=== PATIENT | female | born 1955 | race Caucasian/White ===

== ENCOUNTER → 2022-04-12 09:51 | Outpatient (CLI) | payer MEDICARE, BC, SELFPAY ==
--- NOTE | 2022-04-12 09:56 | MM_ITS ---
PROCEDURE INFORMATION: Exam: MG Bilateral Screening 3D Mammography Exam date and time: 04/12/2022 9:54 AM Age: 66 years old Clinical indication: Screening mammogram TECHNIQUE: Imaging protocol: Bilateral Screening tomosynthesis and 2D mammography including computer-aided detection (CAD) when performed. COMPARISON: 1. MG MAMMO SCREENING DIGITAL TOMOSYNTHESIS BILATERAL W CAD 09/30/2020 4:29 PM 2. MG DIG SCREENING BILAT JEAN PIERRE W 3D [place]ORE 08/18/2019 9:40 AM FINDINGS: MAMMOGRAPHY: Breast composition: There are scattered areas of fibroglandular density. Mass: None. Architectural distortion: No new or suspicious architectural distortion. Calcifications: No new or suspicious calcifications are present Asymmetric density: No new or suspicious asymmetric density is present Skin thickening: None. Axillary adenopathy: None. IMPRESSION: No mammographic evidence of malignancy. Recommend annual screening mammography unless otherwise clinically indicated. ASSESSMENT: BI-RADS category 1: Negative
== END ==
PROVIDERS: PCP Nurse Practitioner Family; Visit Provider Nurse Practitioner Family
DX: Z12.31 Encounter for screening mammogram for malignant neoplasm of breast (principal)
CPT/HCPCS: 77063; 77067

== ENCOUNTER 2023-03-22 12:49 | Outpatient (CLI) | payer MEDICARE, BC, SELFPAY ==
[2023-03-22 14:15] VITALS: BMI 31.9
== END 2023-03-22 23:59 ==
LOC: DIETICIAN 12:49
PROVIDERS: PCP Nurse Practitioner Family; Visit Provider Nurse Practitioner Family
DX: Z71.3 Dietary counseling and surveillance (principal); E11.9 Type 2 diabetes mellitus without complications
CPT/HCPCS: 97802

== ENCOUNTER 2023-04-15 09:44 | Emergency (ER) | payer MEDICARE, BC, SELFPAY ==
[2023-04-15 10:00] VITALS: BP 145/74; PULSE 84; RESP 20; TEMP 36.7; O2SAT 100; BMI 31.1
--- NOTE | 2023-04-15 10:29 | EXP.UTC ---
Discharge Plan Disposition Patient Disposition: Home, Self-Care Condition: Good Prescriptions Prescriptions: New azithromycin [Zithromax] 250 mg tablet 250 mg PO UD DOSE PK Qty: 6 0RF Rx Instructions: Take two (2) tablets today, then one (1) tablet days #2 thru #5 benzonatate 200 mg capsule 200 mg PO BID PRN (Reason: cough) Qty: 30 0RF methylprednisolone 4 mg Tablets,Dose Pack 4 mg PO DIRECTED 6 Days Qty: 21 0RF Rx Instructions: Take 1 pack as directed for 6 days guaifenesin [Mucinex] 600 mg tablet extended release 12hr 600 - 1,200 mg PO BIDP PRN (Reason: Congestion) Qty: 30 0RF No Action metformin 500 mg tablet 500 mg PO DAILY Patient Comments: TAKE 1 TABLET BY MOUTH TWICE DAILY estradiol 0.0375 mg/24 hr patch semiweekly 1 patch topical DIRECTED Patient Comments: PLACE 1 PATCH TWICE WEEKLY fenofibrate 54 mg tablet 54 mg PO DAILY Patient Comments: TAKE 1 TABLET BY MOUTH ONCE DAILY Referrals Follow up/Referrals: Lana Tobin APRN [Primary Care Provider] - See instructions Activity Restrictions/Add. Instructions Additional Instructions/Restrictions: Drink plenty of fluids. Take tylenol or ibuprofen for pain or fever. Take the medications as directed. Follow up with your regular doctor. GO TO THE ER FOR ANY WORSENING SYMPTOMS Clinical Impressions Clinical Impression: Acute bronchitis Instructions Patient Instructions: Acute Bronchitis, DI for Acute Bronchitis Discharge ED Provider: Pacheco Romero [facility] General Stated complaint: SOA, wheezing Mode of Arrival: Ambulatory Source of Information: Patient Limitations: No Limitations Time Seen by Provider: 04/15/23 10:27 Description of Symptoms (Recalled from Triage Doc. by RN): PATIENT C/O WHEEZING IN CHEST AND PRODUCTIVE COUGH WITH GREEN SPUTUM THAT STARTED LAST TUESDAY HEENT Symptoms (Recalled from RN notes): No Resp Symptoms (Recalled from RN notes): Yes Skin Symptoms (Recalled from RN notes): No MS Symptoms (Recalled from RN notes): No Functional Status (Recalled from RN notes): WNL History of Present Illness Provider Complaint: She states that for the past 3 days she has had productive cough, malaise, sinus congestion, and wheezing. Related Data Home Medications Medication Instructions Recorded Confirmed estradiol 0.0375 mg/24 hr 1 patch topical DIRECTED 04/15/23 04/15/23 semiweekly transdermal patch fenofibrate 54 mg tablet 54 mg PO DAILY 04/15/23 04/15/23 metformin 500 mg tablet 500 mg PO DAILY 04/15/23 04/15/23 Previous Rx's Medication Instructions Recorded azithromycin 250 mg tablet 250 mg PO UD DOSE PK #6 tabs 04/15/23 (Zithromax) benzonatate 200 mg capsule 200 mg PO BID PRN cough #30 caps 04/15/23 guaifenesin 600 mg tablet, 600 - 1,200 mg PO BIDP PRN 04/15/23 extended release 12 hr (Mucinex) Congestion #30 tabs methylprednisolone 4 mg tablets in 4 mg PO DIRECTED 6 days #21 tabs 04/15/23 a dose pack Allergies Allergy/AdvReac Type Severity Reaction Status Date / Time No Known Allergies Allergy Verified 04/15/23 10:18 Worker's Comp Is this a Worker's Comp case?: No [facility] Disclaimer: The information contained in this section may have been updated after the patient was seen, as this information can be updated by other users. Medical History (Updated 04/15/23 @ 10:47 by Pacheco Romero APRN) Diabetes mellitus, type 2 Pily's disease Hypothyroid Surgical History (Updated 04/15/23 @ 10:19 by Cora Nye RN) History of cholecystectomy History of hysterectomy History of tonsillectomy Social History Smoking Status: Former smoker alcohol intake: never current occupational status: employed Travel in the last 8 weeks: None ROS Obtained: Yes All systems reviewed & no additional complaints except as documented Constitutional Constitutional: Reports poor appetite Eyes Eyes: Reports system reviewed and no additional complaints, except as documented ENT Ears, Nose, Mouth, and Throat: Reports as per HPI Cardiovascular Cardiovascular: Reports system reviewed and no additional complaints, except as documented and Denies chest pain Respiratory Respiratory: Reports shortness of breath, Reports chest congestion, Reports cough, Denies stridor and Reports wheezing Gastrointestinal Gastrointestingal: Reports system reviewed and no additional complaints, except as documented; Denies abdominal pain, diarrhea or vomiting Musculoskeletal Musculoskeletal: Reports system reviewed and no additional complaints, except as documented and Denies arthralgias Integumentary/Breasts Skin/Breast: Reports system reviewed and no additional complaints, except as documented and Denies rash Neurologic Neurologic: Denies paresthesias Allergic/Immunologic Allergic/Immunologic: Reports wheezing Physical Exam General General appearance: alert and in no apparent distress Eye Eye exam: Present normal appearance, PERRL and EOMI ENT ENT exam: Present mucous membranes moist and normal external ear exam Expanded ENT Exam External ear exam: Present normal external inspection TM/Canal exam: Bilateral TM: erythema and bulging Nose exam: Absent sinus tenderness Nasal speculum exam: Bilateral: normal Mouth exam: Present normal external inspection; Absent drooling Teeth exam: Present normal inspection Throat exam: Present tonsillar erythema and tonsillomegaly Neck Neck exam: Present normal inspection, full ROM and trachea midline; Absent tenderness, lymphadenopathy or thyromegaly Chest Chest inspection: Present normal inspection and symmetric chest wall rise; Absent tenderness or rash Respiratory Respiratory exam: Present normal lung sounds bilaterally; Absent respiratory distress, wheezes, stridor or accessory muscle use Cardiovascular Cardiovascular exam: Present regular rate, normal rhythm and normal heart sounds Abdominal Exam Abdominal exam: Present soft; Absent distention, tenderness, guarding, rebound or rigidity Extremities Exam Extremities exam: Present normal inspection, full ROM and normal capillary refill; Absent tenderness or calf tenderness Back Exam Back exam: Present normal inspection and full ROM; Absent tenderness Neurological Exam Neurological exam: Present alert and oriented X3 Psychiatric Psychiatric exam: Present normal affect and normal mood Skin Skin exam: Present warm, dry, intact and normal color Lymphatic Lymphatic Findings: no adenopathy Medical Decision Making Medical Records Medical records reviewed: No I reviewed the patient's medical records. Abilio Inquiry Pt receiving controlled substance: No Vital Signs: 04/15/23 10:00 Temperature 98.1 F Temperature Source Oral Pulse Rate [Right Brachial] 84 Respiratory Rate 20 Blood Pressure [Right Arm] 145/74 H Blood Pressure Mean [Right Arm] 97 Blood Pressure Source [Right Arm] Automatic Cuff Blood Pressure Position [Right Arm] Sitting 02 Sat by Pulse Oximetry 100 Oxygen Delivery Method Room Air Lab Data Lab results reviewed: Yes I reviewed the patient's lab results.
[2023-04-15 10:44] VITALS: BP 145/74; PULSE 84; RESP 20; TEMP 36.7; O2SAT 100
== END 2023-04-15 10:50 | disposition home or self-care (01) ==
PROVIDERS: Emergency Provider Nurse Practitioner Family; PCP Nurse Practitioner Family
DX: J20.9 Acute bronchitis, unspecified (principal); R06.02 Shortness of breath; R05.8 Other specified cough; R09.81 Nasal congestion; R53.81 Other malaise; E11.9 Type 2 diabetes mellitus without complications; E03.9 Hypothyroidism, unspecified; Z87.891 Personal history of nicotine dependence; Z79.84 Long term (current) use of oral hypoglycemic drugs
CPT/HCPCS: 99204; 99212; G0463

== ENCOUNTER 2023-05-17 11:41 | Outpatient (POV) | payer MEDICARE, BC, SELFPAY | END 2023-05-17 23:59 | disposition home or self-care (01) | LOC: SC 11:41 | PROVIDERS: PCP Nurse Practitioner Family; Visit Provider Dermatology | DX: Z00.00 Encounter for general adult medical examination without abnormal findings (principal) ==

== ENCOUNTER 2023-09-12 10:21 | Outpatient (CLI) | payer MEDICARE, BC, SELFPAY | END 2023-09-12 23:59 | disposition home or self-care (01) | LOC: LAB.DROPOF 09-13 10:21 | PROVIDERS: PCP Nurse Practitioner; Visit Provider Nurse Practitioner | DX: B35.1 Tinea unguium (principal); E11.40 Type 2 diabetes mellitus with diabetic neuropathy, unspecified | CPT/HCPCS: 87102; 87206; 87220 ==

== ENCOUNTER 2023-10-10 09:35 | Outpatient (CLI) | payer MEDICARE, BC, SELFPAY ==
--- NOTE | 2023-10-10 09:39 | MM_ITS ---
PROCEDURE INFORMATION: Exam: MG Bilateral Screening 3D Mammography Exam date and time: 10/10/2023 9:45 AM Age: 68 years old Clinical indication: Screening examination TECHNIQUE: Imaging protocol: Bilateral Screening tomosynthesis and 2D mammography including computer-aided detection (CAD) when performed. COMPARISON: 1. MG MM DIG SCREENING MAMM BI W/CAD 04/12/2022 9:54 AM 2. MG MAMMO SCREENING DIGITAL TOMOSYNTHESIS BILATERAL W CAD 09/30/2020 4:29 PM FINDINGS: MAMMOGRAPHY: Breast composition: The breasts are almost entirely fatty. Mass: None. Architectural distortion: None. Calcifications: No suspicious calcifications. Asymmetric density: None. Skin thickening: None. Axillary adenopathy: None. IMPRESSION: No mammographic evidence of malignancy. Annual screening is recommended unless otherwise clinically indicated. ASSESSMENT: BI-RADS Category 1: Negative
== END 2023-10-10 23:59 | disposition home or self-care (01) ==
LOC: RAD 09:36
PROVIDERS: PCP Nurse Practitioner Family; Visit Provider Nurse Practitioner Family
DX: Z12.31 Encounter for screening mammogram for malignant neoplasm of breast (principal)
CPT/HCPCS: 77063; 77067

== ENCOUNTER 2024-06-28 10:25 | Outpatient (CLI) | payer MEDICARE, BC, SELFPAY ==
--- NOTE | 2024-06-28 10:29 | XR_ITS ---
FINAL REPORT CLINICAL HISTORY: Right Ankle Pain FINDINGS: AP, oblique, and lateral views of the right ankle were obtained. A tiny calcification adjacent to the distal lateral malleolus could represent an age-indeterminate avulsion. No displaced fracture is otherwise identified. The ankle mortise is intact. There is mild degenerative joint disease. Soft tissues are unremarkable. IMPRESSION: Tiny calcification distal to the lateral malleolus could represent age-indeterminate avulsion. Otherwise, no acute findings. Reviewed, Interpreted and Dictated by Tessa Pemberton MD Transcribed by MICHELLE Phillips Authenticated and [facility]
== END 2024-06-28 23:59 | disposition home or self-care (01) ==
LOC: RAD 10:26
PROVIDERS: PCP Nurse Practitioner Family; Visit Provider Nurse Practitioner
DX: M25.571 Pain in right ankle and joints of right foot (principal)
CPT/HCPCS: 73610

== ENCOUNTER 2024-08-28 08:48 | Outpatient (CLI) | payer MEDICARE, BC, SELFPAY ==
--- NOTE | 2024-08-28 08:53 | XR_ITS ---
FINAL REPORT CLINICAL HISTORY: DECREASED RANGE IN MOTION COMPARISON: None FINDINGS: LEFT SHOULDER 3 views of the left shoulder were obtained. There is no acute fracture or dislocation. There are moderate hypertrophic changes at the acromioclavicular joint. The glenohumeral joint is intact. Soft tissues are unremarkable. IMPRESSION: Mild changes of osteoarthritis without acute bony abnormality. Reviewed, Interpreted and Dictated by Saji Pulliam MD Transcribed by Mary Ann Bill Authenticated and [facility]
== END 2024-08-28 23:59 | disposition home or self-care (01) ==
LOC: RAD 08:49
PROVIDERS: PCP Nurse Practitioner Family; Visit Provider Nurse Practitioner Family
DX: M19.012 Primary osteoarthritis, left shoulder (principal)
CPT/HCPCS: 73030

== ENCOUNTER 2024-10-11 09:38 | Outpatient (CLI) | payer MEDICARE, BC, SELFPAY ==
--- NOTE | 2024-10-11 09:41 | MM_ITS ---
PROCEDURE INFORMATION: Exam: MG Bilateral Screening 3D Mammography Exam date and time: 10/11/2024 9:50 AM Age: 69 years old Clinical indication: Screening examination TECHNIQUE: Imaging protocol: Bilateral Screening tomosynthesis and 2D mammography including computer-aided detection (CAD) when performed. COMPARISON: 1. MG MM DIG SCREENING MAMM BI W/CAD 10/10/2023 9:45 AM 2. MG MM DIG SCREENING MAMM BI W/CAD 04/12/2022 9:54 AM FINDINGS: MAMMOGRAPHY: Breast composition: The breasts are almost entirely fatty. Mass: None. Architectural distortion: None. Calcifications: No suspicious calcifications. Asymmetric density: None. Skin thickening: None. Axillary adenopathy: None. IMPRESSION: No mammographic evidence of malignancy. Annual screening is recommended unless otherwise clinically indicated. ASSESSMENT: BI-RADS Category 1: Negative.
--- OUTSIDE RECORDS SUMMARY | 2024-10-11 09:47 | XMS_ITS | Clinical Summary ---
Author Organization [facility] Address [address] [place] [address] Care Team Providers Care Receiver Bulk System Name Role Phone Terence Fernández MD Primary Care Provider Allergies No known active allergies Medications aspirin (aspirin) 81 MG EC tablet aspirin 81 mg oral tablet,delayed release (DR/EC) take 1 tablet by oral route 3 times a day Active Active Cholecalciferol 25 MCG (1000 UT) capsule Vitamin D3 1,000 unit oral capsule take 1 capsule by oral route once Active Active Coenzyme Q10 75 MG capsule Ultra CoQ10 75 mg oral capsule take 1 capsule by oral route daily Active Active esomeprazole (nexIUM) 20 MG capsule Nexium 20 mg oral capsule,delayed release(DR/EC) take 1 capsule (20 mg) by oral route once daily at least 1 hour before a meal swallowing whole. Do not crush or chew granules. Suspended Active estradiol (CLIMARA) 0.0375 MG/24HR Place 2 patches on the skin as directed by provider 1 (One) Time Per Week. Active Folic Acid 20 MG capsule folic acid 20 mg oral capsule take 1 capsule by oral route daily Suspended Active levothyroxine (Synthroid) 112 MCG tablet Synthroid 112 mcg oral tablet take 1 tablet (112 mcg) by oral route once daily Active Active lisinopril (PRINIVIL,ZESTR IL) 5 MG tablet lisinopril 5 mg oral tablet take 1 tablet (5 mg) by oral route once daily Active Active L-METHYLFOLATE CALCIUM PO L-Methylfolate 7.5 mg oral tablet take 1 tablet by oral route daily Suspended Active metFORMIN (GLUCOPHAGE) 500 MG tablet Active rosuvastatin (CRESTOR) 10 MG tablet rosuvastatin 10 mg oral tablet take 1 tablet (10 mg) by oral route once daily Active Active Synthroid 137 MCG tablet 1 Active estradiol (VIVELLE-DOT) 0.0375 MG/24HR patch 1 Active triamcinolone (KENALOG) 0.1 % ointment APPLY TWICE DAILY TO LEFT POSTERIOR THIGH 1 Active aspirin 325 MG tablet Take 325 mg by mouth Daily. Active rosuvastatin (Crestor) 10 MG tablet Daily. 1 Active estradiol (VIVELLE-DOT) 0.0375 MG/24HR patch 1 patch to skin Acti ve metFORMIN (GLUCOPHAGE) 500 MG tablet Every 12 (Twelve) Hours. Active levothyroxine (Synthroid) 137 MCG tablet Daily. Active cholecalciferol (VITAMIN D3) 25 MCG (1000 UT) tablet Daily. Active Active Problems Problem Noted Date Diagnosed Date Breast lump 08/12/2020 Diabetes 08/12/2020 Gastro-esophageal reflux disease with esophagiti s 08/12/2020 Heel pain 08/12/2020 Essential hypertension 08/12/2020 High cholesterol 08/12/2020 Pain in joint, lower leg 08/12/2020 Type 2 diabetes mellitus without complication Ulcerative lesion 08/12/2020 Vitamin D deficiency 08/12/2020 White blood cell disorder 08/12/2020 S/P right rotator cuff repair 08/08/2018 Incomplete rotator cuff tear or rupture of right shoulder, not specified as traumatic 06/06/2018 Overview (08/12/2020): Added automatically from request for surgery [id number] Right rotator cuff tear 06/05/2018 SLAP lesion of right shoulder 06/05/2018 Labral tear of long head of right biceps tendon 04/19/2018 Impaired fasting glucose 01/07/2014 Hyperlipidemia 01/17/2013 Hypothyroidism 01/17/2013 Immunizations Immunization Administration Dates Next Due COVID-19 ([place]) Purple Cap Monovalent 05/21/19 21,04/29/2020 Influenza, Unspecified 11/12/2019,12/10/2017 Pneumococcal Conjugate 13-Valent (PCV13) 016 Td (TDVAX) 10/19/2000 Family History Medical History Relation Name Comments Pancreatic cancer Brother Pancreatic cancer Father Breast cancer Other Aunt 60s Relation Name Status Comments Brother Father Other Aunt Social History Tobacco Use Types Packs/Day Years Used Date Smoking Tobacco: Former Cigarettes 1 1992 Smokeless Tobacco: Never Alcohol Use Standard Drinks/Week Comments Yes 0 (1 standard drink = 0.6 oz pure alcohol) Current some day drinks rarely Abuse Screen Answer Date Recorded Unsafe at Home or Work/School Not on file Feels Threatened by Someone? Not on file Does Anyone Keep You from Co ntacting Others or Doint Things Outside the Home? Not on file 12/03/2022 Physical Sign of Abuse Present Not on file 1 Housing Stability Answer Date Recorded Current Living Arrangements Not on file 11/21 Potentially Unsafe Housing Conditions Not on terrie e 12/03/2022 Family and Community Support Answer Edu e Recorded Help with Day-to-Day Activities Not on file 12/03/2022 Lonely or Isolated Not on file 12/03/2022 Employment Answer Date Recorded Do you want help finding or keeping work or a miguel b? Not on file 12/03/2022 Disabilities Answer Date Recorded Concentrating, Remembering, or Making Decisions Difficulty Not on file 12/03/2022 Doing Errands Independently Difficulty Not on fi le 12/03/2022 Education Answer Date Recorded Help with school or training? Not on file Preferred Language Not on file 12/03/2022 Comments Unknown Sex and Gender Information Value Date Recorded Sex Assigned at Not on file Legal Sex Female 9:21 PM EDT Gender Identity Not on file Sexual Orientation Not on file Last Filed Vital Signs Vital Sign Reading Time Taken Comments Blood Pressure - - Pulse 79 06/30/2017 12:00 AM EDT Temperature - - Respiratory Rate 13 08/12/2020 1:50 PM EDT Oxygen Saturation 98% 06/30/2017 12:00 AM EDT Inhaled Oxygen Concentration - - Weight 95.3 kg (210 lb 3.2 oz) 08/12/2020 1:50 P M EDT Height 167.6 cm (5' 6 ) 08/12/2020 1:50 PM EDT Body Mass Index 33.93 08/12/2020 1:50 PM EDT Plan of Treatment Health Maintenance Due Date Last Done Comments DXA SCAN 1953 COLOGUARD 1998 COLON CANCER SCREENING 5 YEA R SIGMOIDOSCOPY 1998 CT COLONOGRAPHY 1998 FECAL OCCULT BLOOD TEST 1998 FIT Testing (1 year) 1998 ZOSTER VACCINE (1 of 2) 07/19/2003 TDAP/TD VACCINES (2 - Tdap) 10/19/2010 10/19/2000 Pneumococcal Vaccine 50+ (2 of 2 - PPSV23) 12/22/2016 12/23/2015 ANNUAL PHYSICAL 08/04/2020 LIPID PANEL 03/28/2021 03/28/2020 MAMMOGRAM 09/30/2022 09/30/2020, 07/23, 03/31/2018, Additional history exists COVID-19 Vaccine (3 2023-2 5 season) 2023 05/20/2020, 04/29/2020 INFLUENZA VACCINE 11/21/2024 11/12/2019, 12/10/2017 COLONOSCOPY 07/14/2025 07/14/2020 COLORECTAL CANCER SCREENING 07/14/2025 HEPATITIS C SCREENING Completed 03/02/2019 URINE MICROALBUMIN-CREATININ E RATIO (uACR) Discontinued 03/02/2019 HEMOGLOBIN A1C Discontinued 03/28/2020, 06/21, 03/02/2019, Additional history exists Procedures Procedure Name Priority Date/Time Associated Diagnosis Comments MAMMO SCREENING DIGITAL TOMOSYNTHESIS BILATERAL W CAD Routine 09/30/2020 4:33 PM EDT Screening mammogram for high-risk patient HEMOGLOBIN A1C Routine 03/28/2020 8:12 AM EST LIPID PANEL Routine 03/28/2020 8:12 AM EST MICROALBUMIN / CREATININE URINE RATIO Routine 03/02/2019 7:00 AM EST HEPATITIS C ANTIBODY Routine 03/02/2019 7:00 AM EST from Last 3 Months or Most Recently Relevant to Health Maintenance Results * Mammo Screening Digital Tomosynthesis Bilateral With CAD (09/30/2020 4:33 PM EDT) Anatomical Region Laterality Modality Breast N/A Mammography 09/30/2020 4:38 PM EDT Narrative 09/30/2020 4:38 PM EDT PROCEDURE: MAMMO SCREENING DIGITAL TOMOSYNTHESIS BILATERAL W CAD COMPARISON: [facility], MG, DIGITAL SCREENING W/CAD, 03/19/2015, 16:43. [facility], MG, DIGITAL SCREENING W/CAD, 11/08/2016, 16:04. [facility], MG, DIG SCREENING BILAT JEAN PIERRE W 3D [place], 03/30/2018, 15:37. [facility], MG, DIG SCREENING BILAT JEAN PIERRE W 3D [place], 08/18/2019, 9:40. VIEWS: BILATERAL CC AND MLO VIEWS WERE OBTAINED UTILIZING 3D TOMOSYNTHESIS AND R2 CAD SOFTWARE INDICATIONS: Screening. FINDINGS: No suspicious mass, area of architectural distortion or suspicious microcalcification is identified. CONCLUSION: Benign mammogram. Suggest routine mammographic screening. RECOMMENDATION(S): ROUTINE MAMMOGRAM AND CLINICAL EVALUATION IN 12 MONTHS. BIRADS: DIAGNOSTIC CATEGORY 1--NEGATIVE. BREAST COMPOSITION: Almost entirely fatty. PLEASE NOTE: A NORMAL MAMMOGRAM DOES NOT EXCLUDE THE POSSIBILITY OF BREAST CANCER. ANY CLINICALLY SUSPICIOUS PALPABLE LUMP SHOULD BE BIOPSIED. VALENTINO CORONADO MD Terence Fernández MD IMG MAMMOGRAPHY ORDERAB LES Final Result * (ABNORMAL) Hemoglobin A1c (03/28/2020 8:12 AM EST) Hemoglobin A1C 7.3(H) 3.5 - 5.7 % 03/28/2020 1:52 PM EST Comment: Interpretation <7% in Controlled Diabetic Patients. Assay Range 3.4-18.2% ADA 2010 Standards of Medical Care in Diabetes suggest using a cut point of >= 6.5% for diagnosis of diabetes and an A1C range of 5.7%-6.4% as a category of increased risk for future diabetes. 03/28/2020 8:12 AM EST Terence Fernández MD LAB BLOOD ORDERABLES Fi nal Result Performing Organization Address [facility] de Phone Number [facility] * (ABNORMAL) Lipid Panel (03/28/2020 8:12 AM EST) Triglycerides 478(H) 40 - 150 mg/dL 03/28/2020 11:23 AM EST Comment: <150 mg/dL-Normal 150-199 mg/dL-Borderline High 200-499 mg/dL-High >500 mg/dL- Very High Total Cholesterol 225(H) 107 - 200 mg/dL 03/28/2020 11:23 AM EST Comment: <200 mg/dL-Desirable 200-239 mg/dL-Borderline High >240 mg/dL-High >500 mg/dL-Very High HDL Cholesterol 44 40 - 60 mg/dL 03/28/2020 11:23 AM EST Comment: <40 mg/dL-Low >60 mg/dL- Desirable Chol/HDL Ratio 5.1 3.0 - 6.0 NA 03/28/2020 11:23 AM EST 03/28/2020 8:12 AM EST Terence Fernández MD LAB BLOOD ORDERABLES Fi nal Result Performing Organization Address [facility] de Phone Number [facility] * Hepatitis C Antibody (03/02/2019 7:00 AM EST) Hepatitis C Ab <0.1 0.0 - 0.9 s/co ratio 03/03/2019 6:08 AM EST [facility] Comment: Negative: < 0.8 Indeterminate: 0.8 - 0.9 Positive: > 0.9 The CDC recommends that a positive HCV antibody result be followed up with a HCV Nucleic Acid Amplification test ([id number]). 03/02/2019 7:00 AM EST Terence Fernández MD LAB BLOOD ORDERABLES Fi nal Result [facility] * Microalbumin / Creatinine Urine Ratio - (03/02/2019 7:00 AM EST) Creatinine Urine, Random 82.1 10.0 - 300.0 mg/dL 03/02/2019 12:11 PM EST Microalbumin <12.0 0.0 - 20.0 mg/L 03/02/2019 12:11 PM EST Microalbumin/Crea tinine Ratio 14.6 0.0 - 35.0 mg/g{Cre} 03/02/2019 12:11 PM EST 03/02/2019 7:00 AM EST us Terence Fernández MD URINE ORDERABLES Final Result Performing Organization Address [facility] Co de Phone Number [facility] from Last 3 Months or Most Recently Relevant to Health Maintenance Insurance [facility] [place] [id number] [facility] PPO Member Subscriber Plan / Payer (Ef fective 2018-Present) Name:Ana Cristina Burrows Relation to Subscriber:Spouse Name:FREDYELIS Salvador Date of :1952 (Home) Address: [address] [place], [place] [address] [place] [address] Payer ID:[id number] (NAIC) Type:Not on file Address: [facility] [id number] [place] [id number] Advance Directives Documents on File Type Date Recorded Patient Assistant Mechanic Expl anation PATIENT ADVANCE DIRECTIVES - SCAN 07/14/2020 CONVERSION DOCUMENT Care Teams Receiver Bulk System Relationship Specialty Start Date End Date Terence Fernández MD PCP - General Internal Medicine 08/12/20
--- OUTSIDE RECORDS SUMMARY | 2024-10-11 09:47 | XMS_ITS | Encounter Summary ---
Author Organization [facility] Address [address] [place] [address] Care Team Providers Care Fuller Brush Man Name Role Phone Terence Sidhu MD Primary Care Provider Encounter Details Date Type Department Care Team (Late st Contact Info) Description 06/15/2017 Office Visit Converted [facility] [address] [place] [id number] Interface, See Report Social History Tobacco Use Types Packs/Day Years Used Date Smoking Tobacco: Never Assessed Comments Unknown Sex and Gender Information Value Date Recorded Sex Assigned at Not on file Legal Sex Female 9:21 PM EDT Gender Identity Not on file Sexual Orientation Not on file documented as of this encounter Progress Notes * Interface, See Report - 06/15/2017 12:00 AM EDT Progress Note Patient Name: Ana Cristina Burrows Sex: Female Birthdate: 1955 Create Date: June 15, 2017 Chief Complaint Outpatient History & Physical / Surgical Orders ?? COLON CONSULT ?? SCREENING ?? NEVER HAD ONE BEFORE ?? 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 Outpatient History and Physical Which Facility: [facility] Surgery Date: 06/20/2017 Patient's Name: Ana Cristina Burrows Patient's : 1955 Chief Complaint/History of Present Illness: SCREENING, NEVER HAD ONE BEFORE Current Medication List: aspirin 81 mg oral tablet,delayed release (DR/EC), Centrum Silver oral, estradiol 0.0375 mg/24 hr transdermal patch weekly, folic acid 20 mg oral capsule, L-Methylfolate oral, methyl B12, milk thistle oral, Nexium 20 mg oral capsule,delayed release(DR/EC), Synthroid 112 mcgoral tablet, and Vit D Significant Past Medical History: Breast Lump, High cholesterol, Hypothyroidism, Pain: Knee, and Reflux esophagitis Past Surgical History: Breast, Cholecystectomy, Gallbladder, Hysterectomy, Hysterectomy-Abdominal, and Lumpectomy Past Medical History Breast Lump; High cholesterol; Hypothyroidism; Pain: Knee; Reflux esophagitis Past Surgical History Breast; Cholecystectomy; Gallbladder; Hysterectomy; Hysterectomy-Abdominal; Lumpectomy Medication List aspirin 81 mg oral tablet,delayed release (DR/EC); Centrum Silver oral; estradiol 0.0375 mg/24 hr transdermal patch weekly; folic acid 20 mg oral capsule; L-Methylfolate oral; methyl B12; milk thistle oral; Nexium 20 mg oral capsule,delayed release(DR/EC); Synthroid 112 mcg oral tablet; Vit D Allergy List NO KNOWN DRUG ALLERGIES Family Medical History *No Known Family History; Family history of breast cancer; Pancreatic Neoplasm, Malignant Social History Alcohol (Current some day); Caffeine (Current some day); Second hand smoke exposure (Never); Tobacco (Former) Physical Examination ?? Constitutional o Appearance o : well developed/well nourished patient in no apparent distress ?? Respiratory o Auscultation of Lungs o : clear to auscultation with excellent respiratory effort ?? Cardiovascular o Heart o : ?? Auscultation of Heart ?? : regular rate and rhythm without rub, murmur or gallop ?? Gastrointestinal o Abdominal Examination o : soft/nontender, nondistended, no organomegaly appreciated Assessment ?? Pre-Surgical Orders?V72.84 ?? Screen for colon cancer?V76.51/Z12. Plan ?? Orders o Colonoscopy (96070) - V76.51/Z12.11 - 06/20/2017 ?? Instructions o Surgical Orders o Patient Status o Outpatient o o RISK AND BENEFITS: o Consent for surgery: Given these options, the patient has verbally expressed an understanding of the risks of surgery and finds these risks acceptable. We will proceed with surgery as soon as possible. o PREP: Per protocol o IV: LR@75ml/hr o Please sign permit for: COLONOSCOPY WITH POSSIBLE BIOPSIES o The above History and Physical Examination has been completed within 30 days of admission. Electronically Signed by: Rowdy Freitas MD -Author on June 15, 2017 01:10:25 PM documented in this encounter Plan of Treatment Not on file documented as of this encounter Visit Diagnoses Not on filedocumented in this encounter Care Teams Fuller Brush Man Relationship Specialty Start Date End Date Terence Sidhu MD PCP - General Internal Medicine 08/12/20 documented as of this encounter
--- OUTSIDE RECORDS SUMMARY | 2024-10-11 09:47 | XMS_ITS | Clinical Summary ---
Author Organization [facility] Address [address] [place] [id number] Care Team Providers Care Weapons And Tactics Instructor Name Role Phone Terence Fernández MD Primary Care Provider [phone] Allergies No known active allergies Medications estradiol (VIVELLE-DOT) 0.0375 MG/24HR Place 1 patch onto the skin twice a week . 8 Active SYNTHROID 137 MCG tablet Take 137 mcg by mouth nightly . 9 Active finasteride (PROSCAR) 5 MG tablet TK 1 T PO QD 6 9 Active SOOLANTRA 1 % CREAM APPLY A PEA SIZED AMOUNT TOPICALLY ON AREAS OF FACE WITH THIN LAYER AVOIDING EYE AND LIPS 11 9 Active BABY ASPIRIN PO Take 81 mg by mouth Twice a Day . Active aspirin 325 MG tablet Take 325 mg by mouth daily. Active Active Problems Problem Noted Date Diagnosed Date S/P right rotator cuff repair 08/08/2018 Incomplete rotator cuff tear or rupture of right shoulder, not specified as traumatic 06/06/2018 Overview (06/06/2018): Added automatically from request for surgery [id number] Right rotator cuff tear 06/05/2018 SLAP lesion of right shoulder 06/05/2018 Labral tear of long head of right biceps tendon 04/19/2018 Social History Tobacco Use Types Packs/Day Years Used Date Smoking Tobacco: Former Cigarettes Smokeless Tobacco: Never Alcohol Use Standard Drinks/Week Comments Yes 0 (1 standard drink = 0.6 oz pur e alcohol) rare Comments No Sex and Gender Information Value Date Recorded Sex Assigned at Not on file Legal Sex Female 4:40 PM EST Gender Identity Not on file Sexual Orientation Not on file Last Filed Vital Signs Vital Sign Reading Time Taken Comments Blood Pressure 127/68 07/27/2018 12:00 PM EDT Pulse 73 07/27/2018 12:00 PM EDT Temperature 36.4 C (97.5 F) 07/27/2018 11:25 AM EDT Respiratory Rate 20 07/27/2018 12:00 PM EDT Oxygen Saturation 94% 07/27/2018 12:00 PM EDT Inhaled Oxygen Concentration - - Weight 98.4 kg (217 lb) 09/18/2018 9:41 AM EDT Height 167.6 cm (5' 6 ) 09/18/2018 9:41 AM EDT Body Mass Index 35.02 09/18/2018 9:41 AM EDT Plan of Treatment Health Maintenance Due Date Last Done Comments Breast Cancer Screening 1955 CT Colonography 1955 Colonoscopy 1955 Colorectal Cancer Screening 1955 FIT-DNA 1955 FIT 1955 FOBT 1955 Hepatitis C Screening 1955 Sigmoidoscopy 1955 Tdap/Td Vaccine >11 yo (1 - Tdap) 10/20/2000 001 Pneumococcal Vaccines >50 yo (1 of 1 - PCV) 07/19/2003 Shingles (Shingrix) (1 of 2) 07/19/2003 Osteoporosis Screening 2018 Annual SDOH Screening 02/22/2024 Influenza Vaccine (#1) 2024 12/10/2017 Haemophilus Influenzae Type B (Hib) Vaccine Aged Out No longer eligible b ased on patient's age to complete this topic Hepatitis A (HepA) Vaccine Aged Out N o longer eligible based on patient's age to complete this topic Hepatitis B (HepB) Vaccine Aged Out N o longer eligible based on patient's age to complete this topic Meningococcal ACWY Aged Out No longer eligible based on patient's age to complete this topic Polio (IPV) Aged Out No longer eligi ble based on patient's age to complete this topic Rotavirus (RV) Vaccine Aged Out No lo nger eligible based on patient's age to complete this topic Medical Devices Implanted Type Area Scheduling Clerk Device Identifier Shelf Expiration Date Model / Serial / Lot [employer] Screw S 4.75 [id number] - [id number] Implanted:Qty : 2 on 07/27/2018 by Nick Braxton MD at [facility] Screws[employer] Bolts [employer] Washers Right: Shoulder [employer] 06/29/2020 [id number] / / [id number] Insurance [employer] MEDICARE Care Teams Weapons And Tactics Instructor Relationship Specialty Start Date End Date Terence Fernández MD [address] [place] [address] PCP - General 02/28/08
== END 2024-10-11 23:59 | disposition home or self-care (01) ==
LOC: RAD 09:39
PROVIDERS: PCP Nurse Practitioner Family; Visit Provider Nurse Practitioner Family
DX: Z12.31 Encounter for screening mammogram for malignant neoplasm of breast (principal)
CPT/HCPCS: 77063; 77067